=== PATIENT | female | born 1995 ===

== ENCOUNTER → 2023-03-03 | Outpatient (CLI) | payer OTHER ==
[2023-03-03 14:30] LABS: Source, Urine Clean Catch
[2023-03-03 15:37] LABS: BASOPHILS ABSOLUTE AUTO 0.13 K/mm3 (0.00-0.23); BASOPHILS PERCENT AUTO 2 % (0-2); EOSINOPHILS ABSOLUTE AUTO 0.22 K/mm3 (0.00-0.68); EOSINOPHILS PERCENT AUTO 3 % (0-6); Hematocrit 37.3 % (33.0-51.0); Hemoglobin 12.7 g/dL (11.5-16.0); IMMATURE GRAN ABSOLUTE AUTO 0.03 K/mm3 (0.00-0.10); IMMATURE GRAN PERCENT AUTO 0 % (0-1); LYMPHOCYTES ABSOLUTE AUTO 2.91 K/mm3 (0.84-5.20); LYMPHOCYTES PERCENT AUTO 34 % (21-46); MONOCYTES ABSOLUTE AUTO 0.49 K/mm3 (0.16-1.47); MONOCYTES PERCENT AUTO 6 % (4-13); Mean Corpuscular HGB 29.8 pg (26.0-34.0); Mean Corpuscular Volume 88 fL (80-100); Mean Platelet Volume 11.2 fL (9.1-12.4); NEUTROPHILS ABSOLUTE AUTO 4.73 K/mm3 (1.96-9.15); NEUTROPHILS PERCENT AUTO 56 % (41-73); Platelet Count 215 K/mm3 (150-400); RDW Coefficient Variation 12.5 % (11.7-14.2); RDW Standard Deviation 39.8 fL (35.1-46.3); Red Blood Cell Count 4.26 M/mm3 (3.80-5.20); White Blood Cell Count 8.51 K/mm3 (4.00-11.30)
[2023-03-03 16:13] LABS: Bilirubin, Urine Neg (Neg); Blood, Urine Neg (Neg); Glucose Qualitative, Urine Neg (Neg); Ketones, Urine Neg (Neg); Leukocyte Esterase, Urine Neg (Neg); Nitrite, Urine Neg (Neg); Protein, Urine Neg (Neg); Urobilinogen, Urine NORM (Normal)
[2023-03-03 16:16] LABS: Appearance, Urine Clear (Clear); Color, Urine Pale Yellow (P-Yellow)
[2023-03-04 16:11] LABS: HBSAG SCREEN Negative (Negative); HIV AB/P24 AG SCREEN Non Reactive (Non Reactive)
== END | disposition home or self-care (01) ==
LOC: LAB SHORT 14:26 → LAB 14:26
PROVIDERS: Registered Nurse Community Health
DX: Z34.91 Encounter for supervision of normal pregnancy, unspecified, first trimester (principal)
CPT/HCPCS: 80055; 81003; 84443; 87077; 87086; 87186; 87389

== ENCOUNTER 2023-09-05 19:53 | Inpatient (IN) | payer OTHER ==
[~2023-09-05] VITALS: Ht 162.6 cm; Wt 68.1 kg
[2023-09-05 20:19] VITALS: BP 117/58
[2023-09-05 22:14] VITALS: BP 141/57
[2023-09-05 22:41] VITALS: BP 121/67
[2023-09-05 23:18] VITALS: BP 118/66
[2023-09-06] VITALS (16 sets, daily range): BP systolic 96–131; BP diastolic 53–88
[2023-09-06 01:34] LABS: BASOPHILS ABSOLUTE AUTO 0.12 K/mm3 (0.00-0.23); BASOPHILS PERCENT AUTO 1 % (0-2); EOSINOPHILS ABSOLUTE AUTO 0.16 K/mm3 (0.00-0.68); EOSINOPHILS PERCENT AUTO 1 % (0-6); Hematocrit 33.8 % (33.0-51.0); Hemoglobin 11.8 g/dL (11.5-16.0); IMMATURE GRAN ABSOLUTE AUTO 0.13 K/mm3 (0.00-0.10); IMMATURE GRAN PERCENT AUTO 1 % (0-1); LYMPHOCYTES ABSOLUTE AUTO 3.16 K/mm3 (0.84-5.20); LYMPHOCYTES PERCENT AUTO 18 % (21-46); MONOCYTES ABSOLUTE AUTO 0.92 K/mm3 (0.16-1.47); MONOCYTES PERCENT AUTO 5 % (4-13); Mean Corpuscular HGB 30.8 pg (26.0-34.0); Mean Corpuscular HGB Conc 34.9 g/dL (31.5-36.5); Mean Corpuscular Volume 88 fL (80-100); Mean Platelet Volume 10.4 fL (9.1-12.4); NEUTROPHILS ABSOLUTE AUTO 13.08 K/mm3 (1.96-9.15); NEUTROPHILS PERCENT AUTO 75 % (41-73); Platelet Count 167 K/mm3 (150-400); RDW Coefficient Variation 13.2 % (11.7-14.2); RDW Standard Deviation 42.5 fL (35.1-46.3); Red Blood Cell Count 3.83 M/mm3 (3.80-5.20); White Blood Cell Count 17.57 K/mm3 (4.00-11.30)
[2023-09-06] MEDS ORDERED: PRENATAL 19 TA1 EAC3 PO (02:11)
--- NOTE | 2023-09-06 02:57 | NUR ---
09/06/23 0257 Barbara Lowery ARLENE BOY BORN AT 0234. CORD BLOOD SENT WITH [facility]BP RN. CORD SEGMENT SENT WITH RT.
[2023-09-06 10:21] LABS: BASOPHILS ABSOLUTE AUTO 0.06 K/mm3 (0.00-0.23); BASOPHILS PERCENT AUTO 0 % (0-2); EOSINOPHILS ABSOLUTE AUTO 0.02 K/mm3 (0.00-0.68); EOSINOPHILS PERCENT AUTO 0 % (0-6); Hemoglobin 12.5 g/dL (11.5-16.0); IMMATURE GRAN ABSOLUTE AUTO 0.14 K/mm3 (0.00-0.10); IMMATURE GRAN PERCENT AUTO 1 % (0-1); LYMPHOCYTES ABSOLUTE AUTO 1.72 K/mm3 (0.84-5.20); LYMPHOCYTES PERCENT AUTO 9 % (21-46); MONOCYTES ABSOLUTE AUTO 0.66 K/mm3 (0.16-1.47); MONOCYTES PERCENT AUTO 3 % (4-13); Mean Corpuscular HGB 30.9 pg (26.0-34.0); Mean Corpuscular HGB Conc 34.7 g/dL (31.5-36.5); Mean Corpuscular Volume 89 fL (80-100); Mean Platelet Volume 10.7 fL (9.1-12.4); NEUTROPHILS ABSOLUTE AUTO 16.73 K/mm3 (1.96-9.15); NEUTROPHILS PERCENT AUTO 87 % (41-73); Platelet Count 186 K/mm3 (150-400); RDW Standard Deviation 42.7 fL (35.1-46.3); Red Blood Cell Count 4.05 M/mm3 (3.80-5.20); White Blood Cell Count 19.33 K/mm3 (4.00-11.30)
[2023-09-06] MEDS ORDERED: IBU800 M1 PO (17:29)
[2023-09-06] MEDS ORDERED: Percocet 5-3251 EACH PO (17:29)
--- NOTE | 2023-09-06 17:57 | NUR ---
DISCUSSED WITH PT ABOUT PATERNITY PAPERWORK NOT BEING ABLE TO BE COMPLETED AFTER DISCHARGE. PT VERBALIZED UNDERSTANDING. PT WAS GIVEN BUSINESS CARD TO CHILD SUPPORT OFFICE. PT STATED SHE STILL PREFERRED TO DISCHARGE AT THIS TIME. HANDWRITTEN RX FROM DR BRIDGES GIVEN TO PT. PT FATHER PICKED HER UP. PT AMBULATED OUT OF ROOM AND SAID PAIN WAS DOING WELL.
== END 2023-09-06 17:50 | disposition home or self-care (01) | DRG 786 ==
LOC: BC 19:53 → OBS 19:53 → BC 09-06 01:19
PROVIDERS: ADMIT Family Medicine
PROC: 10D00Z1 Extraction of Products of Conception, Low, Open Approach (ICD-10-PCS; principal; 2023-09-06 01:30)
DX: O34.211 Maternal care for low transverse scar from previous cesarean delivery (principal); O60.14X0 Preterm labor third trimester with preterm delivery third trimester, not applicable or unspecified; O71.1 Rupture of uterus during labor; Z37.0 Single live birth; Z3A.33 33 weeks gestation of pregnancy
CPT/HCPCS: 36415; 59025; 76819; 81003; 82731; 85025; 86850; 86900; 86901; 86923; A9270; J0690; J0702; J1885; J2274; J2371; J2405; J2590; J3010; J3105; J7120